=== PATIENT | male | born 1975 | race Hispanic/Latino ===

== ENCOUNTER → 2019-02-13 | Outpatient (CLI) | payer BC ==
--- NOTE | 2019-02-18 18:06 | Polysomnography ---
DATE OF STUDY: REFERRING PHYSICIAN: STUDY: Polysomnography. CHIEF COMPLAINT: Excessive daytime fatigue and sleepiness. The patient also has snoring at night. The patient had disrupted sleep and witnessed apnea. INTERPRETATION: The patient came to the laboratory for a diagnostic study. The patient slept for 335.5 minutes out of 409.5 minutes. The sleep efficiency is 42%. The sleep onset latency was 22 minutes and 26 seconds. The latency to REM was 174 minutes. The patient spent 62.5 minutes in REM sleep, which is 18.6% of the night. There were a total of one apneic event and no hypopnea events. The apnea-hypopnea index was 0.2 events per hour. The patient had increased limb movements during the night. The limb movement index was 70.8 events per hour. The minimal saturation was 94%. The minimal heart rate was 49 beats per minute. There were no arrhythmias. The patient spent 37.7% of the night in supine position. The Seward sleep score was 18. IMPRESSION: 1. Periodic limb movement disorder during sleep. 2. Excessive daytime somnolence. RECOMMENDATIONS: 1. Review the medications for any medicines increasing limb movements during sleep. 2. Check ferritin level along with magnesium and electrolytes. 3. If clinical suspicion for obstructive sleep apnea is high, consider repeat polysomnography. 4. Achieve and maintain an ideal body weight. 5. Avoid alcohol or sedatives prior to retiring at night. Stef Stokes MD [facility] /[id number]
== END ==
LOC: SLEEP 20:14
PROVIDERS: ATTEND Internal Medicine Critical Care Medicine
DX: G47.33 Obstructive sleep apnea (adult) (pediatric) (principal)
CPT/HCPCS: 95810

== ENCOUNTER → 2019-08-07 | Outpatient (CLI) | payer BC ==
--- NOTE | 2019-08-07 12:15 | Diagnostic Imaging Report ---
TECHNIQUE: Magnetic resonance imaging of the left KNEE was performed WITHOUT injected contrast. HISTORY: knee pain COMPARISON: None available. FINDINGS: LIGAMENTS AND TENDONS: ACL: Intact PCL: Intact Collateral ligaments: Synovitis around the MCL - fibers intact. The lateral complex is intact. Iliotibial band: Unremarkable Popliteal tendon: Intact Extensor mechanism: Intact JOINT: Menisci: Medial: Free margin radial tear to the posterior body/horn junction. Lateral: Intact Articular Cartilage: Medial Compartment: No focal defect. Lateral Compartment: No focal defect. Patellofemoral Compartment: No focal defect. Joint Fluid: Moderate joint effusion. Small bakers cyst. BONE: No focal or infiltrative bone marrow replacing abnormality. No acute fracture. SOFT TISSUES: Otherwise, unremarkable. IMPRESSION: Medial meniscus free margin radial tear posterior body/horn junction. Moderate joint effusion and synovitis. Signed by: Dr. Julio Cesar Shane M.D. on 08/07/2019 12:12 PM
== END ==
LOC: MRI 10:38
PROVIDERS: ATTEND Specialist
DX: S83.242A Other tear of medial meniscus, current injury, left knee, initial encounter (principal)

== ENCOUNTER → 2019-09-26 | Outpatient (RCR) | payer BC ==
[~2019-09-26] MED LIST: GARLIC1000 MG PO; LEXAPRO10 MG PO; ONE DAILY FOR1 EAC1 PO; VITAMIN C500 M2 PO; ZINC SULFATE220 M1 PO
== END ==
LOC: PT 09-24 15:49
PROVIDERS: ATTEND Specialist
DX: M25.562 Pain in left knee (principal); M25.662 Stiffness of left knee, not elsewhere classified; M62.81 Muscle weakness (generalized); R26.89 Other abnormalities of gait and mobility

== ENCOUNTER → 2019-10-27 | Outpatient (RCR) | payer BC | LOC: PT 09-29 15:59 | PROVIDERS: ATTEND Specialist | DX: M25.562 Pain in left knee (principal); M62.81 Muscle weakness (generalized); R26.89 Other abnormalities of gait and mobility; M25.662 Stiffness of left knee, not elsewhere classified ==